=== PATIENT | male | born 1960 | race Caucasian/White ===

== ENCOUNTER 2022-07-24 09:23 | Emergency (ER) | payer BC ==
[2022-07-24] MEDS ORDERED: Sodium Chloride 0.9% 1,000 ML IV SCH ×2 (09:30→11:00)
[2022-07-24 10:06] LABS: ESTIMATED GFR 43 mL/min (>60)
[2022-07-24 10:14] LABS: CORONAVIRUS COVID-19 NAA NEGATIVE (NEGATIVE)
[2022-07-24] MEDS ORDERED: Ciprofloxacin 500 MG Tab PO ONE (12:30)
[2022-07-24] MEDS ORDERED: Ondansetron 4 MG/2 ML SDV IVPUSH ONE (12:35)
== END 2022-07-24 13:24 | disposition home or self-care (01) ==
LOC: JP.ED 09:23
DX: K52.9 Noninfective gastroenteritis and colitis, unspecified (principal); E86.0 Dehydration; Z88.8 Allergy status to other drugs, medicaments and biological substances; Z91.048 Other nonmedicinal substance allergy status; Z20.822 Contact with and (suspected) exposure to COVID-19
CPT/HCPCS: 0241U; 36415; 80053; 82009; 83605; 83690; 83735; 85025; 87046; 87493; 87899; 89055; 96361; 96374; 99284; A9270; J2405; J7030